=== PATIENT | male | born 1965 | race Two or more races ===

== ENCOUNTER 2024-10-23 13:28 | Inpatient (IN) | payer OTHER ==
[~2024-10-23] VITALS: Ht 182.9 cm; Wt 89.6 kg
--- NOTE | 2024-10-23 13:55 | ED.PDOC ---
History of Present Illness HPI Comments 59-year-old male with a history of being deaf was brought in by emergency services with a chief complaint of a diffuse headache. EMS states the patient was found without AC any very hot and humid house. Patient has started to be nonverbal and was brought in from a board and care facility. EMS states the pa tient was slightly tachycardic with a blood pressure 121/71. No other associated symptoms, modifiers at this time. Chief Complaint: Headache Time Seen by MD: 13:52 Reviewed Notes: Nurses Notes, Floor Covering Printer Notes, Medications, Allergies Allergies: Coded Allergies: UNOBTAINABLE (Unverified , 10/23/24) Information Source: Patient, Emergency Med Personnel Mode of Arrival: EMS Severity: Moderate Timing: Hours Duration: Since onset, Hours Prehospital treatment: None Past Medical History Past Medical History (Other): Deaf Surgical History: Denies all surgeries Family History Family History: Reviewed,noncontributory to illness Social History Smoker: Non-Smoker Alcohol: Denies ETOH Use Drugs: Denies Drug Use Lives In: Home Constitutional: denies: chills, diaphoresis, fatigue, fever, malaise, sweats, weakness, others EENTM: denies: blurred vision, double vision, ear bleeding, ear discharge, ear drainage, ear pain, ear ringing, eye pain, eye redness, hearing loss, mouth pain, mouth swelling, nasal discharge, nose bleeding, nose congestion, nose pain, photophobia, tearing, throat pain, throat swelling, voice changes, others Respiratory: denies: cough, hemoptysis, orthopnea, SOB at rest, shortness of breath, SOB with excertion, stridor, wheezing, others Cardiovascular: denies: chest pain, dizzy spells, diaphoresis, Dyspnea on exertion, edema, irregular heart beat, left arm pain, lightheadedness, palpitat ions, PND, syncope, others Gastrointestinal: denies: abdomen distended, abdominal pain, blood streaked bow els, constipated, diarrhea, dysphagia, difficulty swallowing, hematemesis, melena, nausea, poor appetite, poor fluid intake, rectal bleeding, rectal pain, vomiting, others Genitourinary: denies: burning, dysuria, flank pain, frequency, hematuria, incontinence, penile discharge, penile sore, pain, testicle pain, testicle swelling, urgency, others Neurological: reports: headache; denies: dizziness, fainting, left sided numbness, left sided weakness, numbness, paresthesia, pre-existing deficit, right sided numbness, right sided weakness, seizure, speech problems, tingling, tremors, weakness, others Musculoskeletal: denies: back pain, gout, joint pain, joint swelling, muscle p ain, muscle stiffness, neck pain, others Integumetry: denies: bruises, change in color, change in hair/nails, dryness, laceration, lesions, lumps, rash, wounds, others Allergic/Immunocompromised: denies: Difficulty Healing, Frequent Infections, Hives, Itching, others Hematologic/Lymphatic: denies: anemia, blood clots, easy bleeding, easy bruising, swollen glands, others Endocrine: denies: excessive hunger, excessive sweating, excessive thirst, excessive urination, flushing, intolerance to cold, intolerance to heat, unexplained weight gain, unexplained weight loss, others Psychiatric: denies: anxiety, bipolar disorder, depression, hopeless, panic disorder, schizophrenia, sleepless, suicidal, others All Other Systems: Reviewed and Negative Physical Exam General Appearance: Moderate Distress, Normal HEENT: Normal ENT Inspection, Pharynx Normal, TMs Normal Neck: Full Range of Motion, Non-Tender, Normal, Normal Inspection Respiratory: Chest Non-Tender, Lungs Clear, No Accessory Muscle Use, No Respiratory Distress, Normal Breath Sounds Cardiovascular: No Edema, No JVD, No Murmur, No Gallop, Normal Peripheral Pulses, Regular Rate/Rhythm Breast Exam: Deferred Gastrointestinal: No Organomegaly, Non Tender, No Pulsatile Mass, Normal Bowel Sounds, Soft Genitalia: Deferred Pelvic: Deferred Rectal: Deferred Extremities: No calf tenderness, Normal capillary refill, Normal inspection, Normal range of motion, Non-tender, No pedal edema Musculoskeletal : Apperance: Normal Neurologic: Alert, roving hand II-XII nml as Tested, No Motor Deficits, Normal Affect, Normal Mood, No Sensory Deficits Cerebellar Function: Normal Reflexes: Normal Skin: Dry, Normal Color, Warm Peripheral Pulses: 3+ Radial (R), 3+ Radial (L) Lymphatic: No Adenopathy Was a procedure done? Was a procedure done?: No Differential Dx Considerations may include: Heat stroke, dehydration, electrolyte imbalance X-Ray, Labs, Meds, VS Vital Signs Date Time Temp Pulse Resp B/P (MAP) Pulse Ox O2 Delivery O2 Flow Rate FiO2 10/23/24 13:40 98.4 98 18 121/81 97 98.4 Patient alert. Vitals stable. He is deaf. Answering questions. Saturation pristine on room air. No distress. Establish intravenous access. Was given fluids. No acute distress. Heat exhaustion. No leg swelling. No chest pain. No acute process. Explained to the patient. Was told to follow up with his primary care physician. Was told to come back if there is any problem. Time of 1ST Reevaluation: 14:22 Reevaluation 1ST: Improved Patient Education/Counseling: Diagnosis, Treatment, Need For Follow Up Family Education/Counseling: No Family Present SEPSIS Sepsis Screen Date sepsis recognized/suspect: Oct 23, 2024 Time Sepsis recognized/suspect: 1346 Recent Procedure: No On Antibiotic Therapy: No Respiratory Rate >20: No Heart Rate >90: Yes Temp<36 C (96.8 F) or >38.3 C: No SBP <90 or MAP <65 mmHG: No New Acute Mental Status Change: No Is the patient on CPAP, BIPAP,: No Vital Signs Date Time Temp Pulse Resp B/P (MAP) Pulse Ox O2 Delivery O2 Flow Rate FiO2 10/23/24 13:40 98.4 98 18 121/81 97 98.4 Departure 1 Departure Time of Disposition: 15:50 Impression: Primary Impression: Heat exhaustion Qualified Codes: T67.5XXA - Heat exhaustion, unspecified, initial encounter Disposition: 01 HOME / SELF CARE / HOMELESS Condition: Good Discharged With: Self Critical Care Note Critical Care Time?: No Stability Stability form required: No Heart Score Heart Score: Heart Score Response (Comments) Value History N/A 0 EKG N/A 0 Age N/A 0 Risk Factors N/A 0 Troponin N/A 0 Total 0 I personally scribed for GEMMA WOODS MD ([email or web address]) on 10/23/24 at 13:55. Electronically submitted by Umair Narayanan ([email or web address]). GEMMA WOODS MD Oct 23, 2024 13:55
[2024-10-23] MEDS ORDERED: NITROGLYCERIN 0.4 MG SL TAB SL PRN (22:45)
[2024-10-23] MEDS ORDERED: MORPHINE SULFATE INJ 2 MG/ml SYRG IV PRN (22:45)
[2024-10-23 23:42] LABS: Hematocrit 43.9 % (41.0-53.0); Hemoglobin 15.3 g/dL (13.5-17.5); Mean Corpuscular Hemoglobin 31.5 pg (28.0-32.0); Mean Corpuscular Volume 90.7 fL (80.0-100.0); Nucleated Red Blood Cells % 0.1 %
[2024-10-24] MEDS: SODIUM CHLORIDE 0.9% 1,000 ML IV SCH
[2024-10-24 00:01] LABS: Alanine Aminotransferase 16 U/L (7-40); Albumin 4.7 g/dL (3.2-4.8); Alkaline Phosphatase 82 U/L (46-116); BUN/Creatinine Ratio 10.7 (10.0-20.0); Bilirubin, Total 0.9 mg/dL (0.2-1.0); Blood Urea Nitrogen 13 mg/dL (9-23); Calcium 9.6 mg/dL (8.7-10.4); Carbon Dioxide 27 mmol/L (20-31); Glucose 99 mg/dL (74-106)
--- NOTE | 2024-10-24 00:05 | DVH ---
CHEST RADIOGRAPH Indication: Rule out pneumonia Technique: 1 view Comparison: None FINDINGS: Lines and Tubes: None Lungs: No focal consolidation. Pleura: No effusion or pneumothorax. Cardiomediastinal contours: Unremarkable. Other: No acute osseous abnormality. IMPRESSION: 1. No acute cardiopulmonary abnormality.
[2024-10-24 00:07] LABS: Total Protein 8.2 g/dL (5.7-8.2)
--- NOTE | 2024-10-24 00:09 | DVHHPRES ---
History of Present Illness Resident Creating Document: TAMI SELBY RESIDENT History of Present Illness 59-year-old male, difficulty hearing, living in board and care facility, nonverbal presents to the ER with history of headache according to the ER physician. However, the patient is unable to provide history, when offered pen and paper he could not write anything meaningful. His physical examination was normal. According to EMS the patient was found without AC, in a very hot and humid house. The patient was tachycardic on admission. No history was obtained due to patient's current condition, however all the baseline blood tests and imaging have been ordered. We will continue following up with the results. Review of Systems Neurological: Other (Headache) Allergies: Coded Allergies: UNOBTAINABLE (Unverified , 10/23/24) Medications Current Medications Medications Dose Ordered Sig/Jelly Route Start Time Stop Time Status Last Admin Dose Admin Sodium Chloride 10 ml Q8HR IV 10/24/24 06:00 Sodium Chloride 1,000 ml @ 60 mls/hr [id number] IV 10/23/24 22:45 Nitroglycerin 0.4 mg Q5MINP PRN SL 10/23/24 22:45 Morphine Sulfate 2 mg Q30M PRN IV 10/23/24 22:45 Exam Vital Signs Vital Signs Date Time Temp Pulse Resp B/P (MAP) Pulse Ox O2 Delivery O2 Flow Rate FiO2 10/23/24 20:31 98.4 93 18 146/88 (107) 96 98.4 Labs/Xrays Labs Test 10/23/24 23:35 Range/Units White Blood Count 10.7 4.4-10.8 10^3/uL Red Blood Count 4.84 4.5-5.90 10^6/uL Hemoglobin 15.3 13.5-17.5 g/dL Hematocrit 43.9 41.0-53.0 % Mean Corpuscular Volume 90.7 80.0-100.0 fL Mean Corpuscular Hemoglobin 31.5 28.0-32.0 pg Mean Corpuscular Hemoglobin Concent 34.8 32.0-36.0 g/dL Red Cell Distribution Width 12.6 11.8-14.3 % Platelet Count 328 140-450 10^3/uL Mean Platelet Volume 7.0 6.9-10.8 fL Neutrophils (%) (Auto) 75.8 37.0-80.0 % Lymphocytes (%) (Auto) 14.4 10.0-50.0 % Monocytes (%) (Auto) 8.2 0.0-12.0 % Eosinophils (%) (Auto) 0.9 0.0-7.0 % Basophils (%) (Auto) 0.7 0.0-2.0 % Neutrophils # (Auto) 8.1 1.6-8.6 10 ^3/uL Lymphocytes # (Auto) 1.6 0.4-5.4 10 ^3/uL Monocytes # (Auto) 0.9 0-1.3 10 ^3/uL Eosinophils # (Auto) 0.1 0-0.8 10 ^3/uL Basophils # (Auto) 0.1 0-0.2 10 ^3/uL Nucleated Red Blood Cells 0.1 % D-Dimer, Quantitative < 0.19 0.0-0.49 mg/L FEU Carbon Dioxide Level 27 20-31 mmol/L Blood Urea Nitrogen 13 9-23 mg/dL Creatinine 1.22 0.700-1.30 mg/dL Glomerular Filtration Rate Calc 68 >90 mL/min BUN/Creatinine Ratio 10.7 10.0-20.0 Serum Glucose 99 74-106 mg/dL Lactic Acid Level 1.7 0.4-2.0 mmol/L Calcium Level 9.6 8.7-10.4 mg/dL Total Bilirubin 0.9 0.2-1.0 mg/dL Aspartate Amino Transferase (AST) 20 13-40 U/L Alanine Aminotransferase (ALT) 16 7-40 U/L Alkaline Phosphatase 82 46-116 U/L Ammonia < 10 L 11-32 umol/L Total Protein 8.2 5.7-8.2 g/dL Albumin 4.7 3.2-4.8 g/dL SEPSIS Sepsis Screen Date sepsis recognized/suspect: Oct 23, 2024 Time Sepsis recognized/suspect: 1346 Recent Procedure: No On Antibiotic Therapy: No Respiratory Rate >20: No Heart Rate >90: Yes Temp<36 C (96.8 F) or >38.3 C: No SBP <90 or MAP <65 mmHG: No New Acute Mental Status Change: No Is the patient on CPAP, BIPAP,: No Physician Orders Allergies (10/23/24 22:44) Code Status (10/23/24 22:44) Sodium Chloride Lock (Saline Lock Ns) (10/24/24 06:00) Sodium Chloride 0.9% (10/23/24 22:45) Oxygen Per Hour (10/23/24 22:44) Complete Blood Count (10/24/24 04:00) Comprehensive Metabolic Panel (10/24/24 04:00) Npo (Nothing By Mouth) Diet (10/24/24 Breakfast) Nitroglycerin Sublingual (Ntrostat Subli (10/23/24 22:45) Morphine Sulfate Injection (10/23/24 22:45) Oxygen By Nasal Cannula (10/23/24 22:44) Stat Ekg For Chest Pain (10/23/24 22:44) Notify Md Of Changes From Base (10/23/24 22:44) Radiation Monitor For 24 Hours (10/23/24 22:44) Emergency Dysrhythmia Protocol (10/23/24 22:44) Rhythm Strips Once Every Shift (10/23/24 22:44) Chest Two Views Routine (10/23/24 22:44) Comprehensive Metabolic Panel (10/23/24 23:16) Urinalysis (10/23/24 23:19) Drug Screen (10/23/24 23:19) Admit (10/24/24 00:02) Vital Signs Date Time Temp Pulse Resp B/P (MAP) Pulse Ox O2 Delivery O2 Flow Rate FiO2 10/23/24 20:31 98.4 93 18 146/88 (107) 96 98.4 Laboratory Tests Test 10/23/24 23:35 Lactic Acid Level 1.7 mmol/L (0.4-2.0) White Blood Count 10.7 10^3/uL (4.4-10.8) Assessment/Plan Assessment/Plan Headache due to stroke/migraines/tension headaches Confusion due to metabolic encephalopathy Pain management done CT scan of the head ordered, results pending Electrolytes and glucose within normal limits Pulmonary: Chest x-ray: Normal No leukocytosis Nonverbal, living in board and care facility Consider social service evaluation GI prophylaxis: Not indicated DVT prophylaxis: Indicated Diet: Regular Goals of care discussed with the patient for more than 27 minutes: Full code s tatus Case discussed with Dr. Alexis , patient and RN Plan discussed with: Other My Orders Orders - TAMI SELBY RESIDENT Procedure Category Date Status Time Allergies ALENA 10/23/24 In Process 22:44 Code Status CODE 10/23/24 Transmitted 22:44 Sodium Chloride Lock PHA 10/24/24 In Process (Saline Lock Ns) 06:00 Sodium Chloride 0.9% PHA 10/23/24 In Process 22:45 Oxygen Per Hour RT 10/23/24 Transmitted 22:44 Complete Blood Count LAB 10/24/24 Logged 04:00 Comprehensive LAB 10/24/24 Logged Metabolic Panel 04:00 Npo (Nothing By DIET 10/24/24 Transmitted Mouth) Diet Breakfast Nitroglycerin PHA 10/23/24 In Process Sublingual (Ntrostat 22:45 Morphine Sulfate PHA 10/23/24 In Process Injection 22:45 Oxygen By Nasal RT 10/23/24 Transmitted Cannula 22:44 Stat Ekg For Chest ALENA 10/23/24 In Process Pain 22:44 Notify Md Of Changes [facility] 10/23/24 In Process From Base 22:44 Radiation Monitor For [facility] 10/23/24 In Process 24 Hours 22:44 Emergency Dysrhythmia ALENA 10/23/24 In Process Protocol 22:44 Rhythm Strips Once [facility] 10/23/24 In Process Every Shift 22:44 Chest Two Views XY 10/23/24 Resulted Routine 22:44 Admit ADMIT 10/24/24 Transmitted 00:02 Date of Service: Oct 24, 2024 Billing Provider: RUBEN ALEXIS MD Common Visit Codes: [id number] INP/OBS CARE (HIGH) TAMI SELBY RESIDENT Oct 24, 2024 00:09 RUBEN ALEXIS MD Oct 24, 2024 13:55
[2024-10-24 00:11] LABS: Anion Gap 9 (5-15); Chloride 99 mmol/L (98-107); Potassium 3.6 mmol/L (3.5-5.1)
[2024-10-24 00:12] LABS: Sodium 135 mmol/L (136-145)
[2024-10-24 00:37] VITALS: PULSE 79; RESP 20; O2SAT 97
[2024-10-24] MEDS: SODIUM CHLORIDE 0.9% 1,000 ML IV ONE (00:49)
[2024-10-24 04:45] LABS: Hematocrit 40.1 % (41.0-53.0); Hemoglobin 14.2 g/dL (13.5-17.5); Mean Corpuscular Hemoglobin 31.7 pg (28.0-32.0); Mean Corpuscular Volume 89.6 fL (80.0-100.0); Nucleated Red Blood Cells % 0.1 %
[2024-10-24 04:59] LABS: Alanine Aminotransferase 16 U/L (7-40); Albumin 4.3 g/dL (3.2-4.8); Alkaline Phosphatase 71 U/L (46-116); Anion Gap 9 (5-15); BUN/Creatinine Ratio 11.5 (10.0-20.0); Bilirubin, Total 0.8 mg/dL (0.2-1.0); Blood Urea Nitrogen 13 mg/dL (9-23); Calcium 9.4 mg/dL (8.7-10.4); Carbon Dioxide 27 mmol/L (20-31); Chloride 102 mmol/L (98-107); Glucose 96 mg/dL (74-106); Potassium 3.8 mmol/L (3.5-5.1); Sodium 138 mmol/L (136-145); Total Protein 7.0 g/dL (5.7-8.2)
[2024-10-24] MEDS: SODIUM CHLOR 0.9% PF (SALINE LOCK) 10ML VIAL/SYR IV SCH (05:27)
--- NOTE | 2024-10-24 07:00 | DVH ---
EXAM: CT HEAD WITHOUT CONTRAST INDICATION: Severe headaches TECHNIQUE: CT of the head without intravenous contrast. Radiation Dose : 1. Head: CT Dose: CTDI volume is 62 mGy. Dose-length product is 1225.8 mGy*cm The dose indicators for CT are the volume Computed Tomography (CT) Dose Index (CTDIvol) and the Dose Length Product (DLP), and are measured in units of mGy and mGy-cm, respectively. These indicators are not patient dose, but values generated from the CT scanner acquisition factors. The report includes radiation exposure data for exposures received during this examination. COMPARISON: None FINDINGS: There is no evidence of acute intracranial hemorrhage, extra-axial collection, mass effect, midline s hift, herniation or hydrocephalus. The ventricles, sulci and cisterns are age appropriate. The hoyt-white differentiation is intact. Patchy periventricular and subcortical white matter hypoattenuation is nonspecific but may be related to small vessel ischemic disease. Mild mucosal opacification of the paranasal sinuses. Mild opacification of the left mastoid air cells . The surrounding soft tissues and osseous structures are unremarkable. IMPRESSION: No acute intracranial abnormality. Mild mucosal opacification of the paranasal sinuses. Mild opacification of the left mastoid air cells . Radiation optimization: All CT scans at this facility use at least one of these dose optimization neo hniques: automated exposure control mA and/or kV adjustment per patient size (includes targeted exam s where dose is matched to clinical indication) or iterative reconstruction.
[2024-10-24 08:00] VITALS: PULSE 72; RESP 17; O2SAT 93
[2024-10-24 08:32] LABS: Urine Protein, UAD Negative (Negative)
[2024-10-24 08:36] LABS: Hematocrit 39.6 % (41.0-53.0); Hemoglobin 13.6 g/dL (13.5-17.5); Mean Corpuscular Hemoglobin 31.2 pg (28.0-32.0); Mean Corpuscular Volume 90.6 fL (80.0-100.0); Nucleated Red Blood Cells % 0.1 %
[2024-10-24 08:49] LABS: Amphetamine Screen, Urine Neg (NEGATIVE); Barbiturate Scree,Urine Neg (NEGATIVE); Benzodiazephine Screen, Urine Neg (NEGATIVE); Cannabinoid Screen, Urine Neg (NEGATIVE); Cocaine Screen, Urine Neg (NEGATIVE); Opiate Scree,Urine Neg (NEGATIVE); Phencyclidine Screen, Urine Neg (NEGATIVE)
--- NOTE | 2024-10-24 18:36 | DVHPN2 ---
Subjective Cross covering for [facility] today. Patient is seen and evaluated along with the nurse at bedside. Comfortable. No complaints. Changes from previous H/P or p: No Changes Objective Vitals Vital Signs Date Time Temp Pulse Resp B/P (MAP) Pulse Ox O2 Delivery O2 Flow Rate FiO2 10/24/24 16:00 98.6 75 12 124/77 (93) 95 98.6 10/24/24 08:00 Room Air* 0 21 Exam Comfortable in bed without distress. HEENT neck supple no JVD pupils equal round react to light. Heart regular rate rhythm S1-S2. Lungs fair air movement without rales wheezes. Abdomen soft nontender positive bowel sounds. Extremities no edema positive pulses. Neurologic no focal deficits. Medications Current Medications Medications Dose Ordered Sig/Jelly Route Start Time Stop Time Status Last Admin Dose Admin Sodium Chloride 10 ml Q8HR IV 10/24/24 06:00 10/24/24 13:48 10 ML Sodium Chloride 1,000 ml @ 60 mls/hr [id number] IV 10/23/24 22:45 10/24/24 13:48 60 MLS/HR Nitroglycerin 0.4 mg Q5MINP PRN SL 10/23/24 22:45 Morphine Sulfate 2 mg Q30M PRN IV 10/23/24 22:45 Laboratory Results Laboratory Tests 10/24/24 04:15 10/24/24 08:00 Chemistry Test 10/23/24 23:35 10/24/24 04:15 Albumin 4.7 g/dL (3.2-4.8) 4.3 g/dL (3.2-4.8) Calcium Level 9.6 mg/dL (8.7-10.4) 9.4 mg/dL (8.7-10.4) Total Protein 8.2 g/dL (5.7-8.2) 7.0 g/dL (5.7-8.2) Coagulation Test 10/23/24 23:35 D-Dimer, Quantitative < 0.19 mg/L FEU (0.0-0.49) LFT Test 10/23/24 23:35 10/24/24 04:15 Alanine Aminotransferase (ALT) 16 U/L (7-40) 16 U/L (7-40) Alkaline Phosphatase 82 U/L (46-116) 71 U/L (46-116) Aspartate Amino Transferase (AST) 20 U/L (13-40) 19 U/L (13-40) Total Bilirubin 0.9 mg/dL (0.2-1.0) 0.8 mg/dL (0.2-1.0) Urinalysis Test 10/24/24 08:20 Urine Color Yellow (Yellow) Urine Clarity Clear (Clear) Urine pH 6.5 (5.0-9.0) Urine Specific [place] 1.004 (1.001-1.035) Urine Protein Negative (Negative) Urine Ketones Negative (Negative) Urine Blood Negative /uL (Negative) Urine Nitrite Negative (Negative) Urine Bilirubin Negative (Negative) Urine Urobilinogen Normal mg/dL (Negative) Urine Leukocyte Esterase Negative /uL (Negative) Urine RBC <1 /hpf (0 - 3) Urine Microscopic WBC < 1 /HPF (0-3) Urine Squamous Epithelial Cells None seen /hpf (<5) Urine Bacteria None seen /hpf (None Seen) Urine Glucose Normal mg/dL (Normal) Assessment/Plan Assessment/Plan Headache due to stroke/migraines/tension headaches Confusion due to metabolic encephalopathy Alert and awake minimally verbal. Does not follow commands. Appears patient either probably has either psychiatric illness or developmental delay. Apparently came from a boarding care but there is no medication list started information available at this time. Patient is some verbal response but still confused. Unclear if patient has any developmental delay. Apparently patient came from a boarding care. Patient is able to take his medications by mouth. Continue present management for now. Further clinical management per clinical course. Discussed with the nurse at bedside Plan discussed with: Other My Orders Orders - SHANE COPPOLA MD Procedure Category Date Status Time Regular Diet DIET 10/24/24 Transmitted Dinner Date of Service: Oct 24, 2024 Billing Provider: SHANE COPPOLA MD Common Visit Codes: [id number] INP/OBS CARE(LOW) SHANE COPPOLA MD Oct 24, 2024 18:36
[2024-10-24 19:33] VITALS: PULSE 74; RESP 20; O2SAT 94
--- NOTE | 2024-10-24 22:05 | DVHINCON2 ---
Date of service: Oct 24, [address] Santos Reason for Consultation ALOC History of Present Illness Mr. Saavedra is a 59 years old gentleman with a history of deafness/nonverbal, he was brought in by Emergency Service with a chief complaint of diffuse h eadache. According to ER documentation, the patient was found in the hot and humid house without AC in the board and living facility. TIA's slightly tachycardic with a blood pressure 121/71. When I approached him, the patient was covered blanket completely, touching, he opened blanket, but he did not vocalize, often we have connected to the a high school foreign language tutor, he only asked the belt conveyor drier to tell us to lower the head of the gurney, but he did not answer my question or interpreted the questions, and simply covered his head blanket. He was not cooperative with this consultation His brother, Pedro, did not answer [phone] is number of the [facility]. is a phone of a [employer] UDS, 10/24/2024: Negative Urinalysis, 10/21/2024: WBC: <1, urine leukocyte esterase: Negative CBC, 10/24/24: ok CMP, 10/24/24: ok NH3, 10/23/24: < 10 CT head, 10/24/24: No acute intracranial abnormality. Mild mucosal opacification of the paranasal sinuses. Mild opacification of the left mastoid air cells. Past Medical History Deafness/nonverbal Past Surgical History Unobtainable Family History Unobtainable Social History Unobtainable Allergies: Coded Allergies: UNOBTAINABLE (Unverified , 10/23/24) Current Medications Current Medications Medications (Trade) Dose Ordered Sig/Jelly Route PRN Reason Start Time Stop Time Status Last Admin Sodium Chloride (Saline Lock Ns) 10 ml Q8HR IV 10/24/24 06:00 10/24/24 13:48 Sodium Chloride 1,000 ml @ 60 mls/hr [id number] IV 10/23/24 22:45 10/24/24 13:48 Nitroglycerin (Ntrostat Sublingual) 0.4 mg Q5MINP PRN SL FOR CHEST PAIN 10/23/24 22:45 Morphine Sulfate 2 mg Q30M PRN IV FOR CHEST PAIN 10/23/24 22:45 Review of Systems Unobtainable Vital Signs Vital Signs Date Time Temp Pulse Resp B/P (MAP) Pulse Ox O2 Delivery O2 Flow Rate FiO2 10/24/24 20:01 74 10/24/24 19:33 98.6 20 134/82 (99) 94 98.6 10/24/24 19:33 Room Air* 0 21 Physical Exam GENERAL EXAM: General: the patient is well developed and nourished. No acute distress. HEENT: Normocephalic, neck is supple, no carotid bruits. No mass. RESPIRATORY: Normal respiratory effort with symmetrical lung expansion. Lungs clear to auscultation. CARDIOVASCULAR: Regular rate and rhythm with no murmurs. S1, S2. ABDOMEN: Soft, nontender, normal bowel sound NEUROLOGICAL: MENTAL STATUS: Subjective SPEECH, LANGUAGE, HIGHER CORTICAL FUNCTION: No vocalize CRANIAL NERVES: #2: Visual field feels for #3,4,6: Pupils are reactive. EOMs full and conjugate. #5: Facial sensation intact in all three divisions bilaterally. Mandibular strength intact. #7: Facial muscles symmetrical and strength intact. #8: Deafness #9,10: Deferred #11: Deferred, looks unremarkable. #12: Deferred SENSATION: Okay to touch MOTOR: Normal tone in the upper and lower extremity. Normal muscle bulk. No fasciculations. No abnormal movements or posturing. He moves the arms and legs REFLEXES: Deferred CEREBELLAR/COORDINATION: Deferred GAIT/STATION: deferred Labs/Diagnostic Data Labs Test 10/24/24 08:20 10/24/24 08:00 10/24/24 04:15 10/23/24 23:35 Range/Units Urine Color Yellow Yellow Urine Clarity Clear Clear Urine pH 6.5 5.0-9.0 Urine Specific [place] 1.004 1.001-1.035 Urine Protein Negative Negative Urine Ketones Negative Negative Urine Blood Negative Negative /uL Urine Nitrite Negative Negative Urine Bilirubin Negative Negative Urine Urobilinogen Normal Negative mg/dL Urine Leukocyte Esterase Negative Negative /uL Urine RBC <1 0 - 3 /hpf Urine Microscopic WBC < 1 0-3 /HPF Urine Squamous Epithelial Cells None seen <5 /hpf Urine Bacteria None seen None Seen /hpf Urine Glucose Normal Normal mg/dL Urine Opiates Screen Neg NEGATIVE Urine Fentanyl Screen Neg NEGATIVE Urine Barbiturates Screen Neg NEGATIVE Urine Phencyclidine Screen Neg NEGATIVE Urine Amphetamines Screen Neg NEGATIVE Urine Benzodiazepines Screen Neg NEGATIVE Urine Cocaine Screen Neg NEGATIVE Urine Cannabinoids Screen Neg NEGATIVE White Blood Count 7.1 # 4.4-10.8 10^3/uL Red Blood Count 4.37 L 4.5-5.90 10^6/uL Hemoglobin 13.6 13.5-17.5 g/dL Hematocrit 39.6 L 41.0-53.0 % Mean Corpuscular Volume 90.6 80.0-100.0 fL Mean Corpuscular Hemoglobin 31.2 28.0-32.0 pg Mean Corpuscular Hemoglobin Concent 34.4 32.0-36.0 g/dL Red Cell Distribution Width 12.6 11.8-14.3 % Platelet Count 261 140-450 10^3/uL Mean Platelet Volume 7.2 6.9-10.8 fL Neutrophils (%) (Auto) 69.1 37.0-80.0 % Lymphocytes (%) (Auto) 15.6 10.0-50.0 % Monocytes (%) (Auto) 11.9 0.0-12.0 % Eosinophils (%) (Auto) 2.9 0.0-7.0 % Basophils (%) (Auto) 0.5 0.0-2.0 % Neutrophils # (Auto) 4.9 1.6-8.6 10 ^3/uL Lymphocytes # (Auto) 1.1 0.4-5.4 10 ^3/uL Monocytes # (Auto) 0.8 0-1.3 10 ^3/uL Eosinophils # (Auto) 0.2 0-0.8 10 ^3/uL Basophils # (Auto) 0 0-0.2 10 ^3/uL Nucleated Red Blood Cells 0.1 % Sodium Level 138 136-145 mmol/L Potassium Level 3.8 3.5-5.1 mmol/L Chloride Level 102 98-107 mmol/L Carbon Dioxide Level 27 20-31 mmol/L Anion Gap 9 5-15 Blood Urea Nitrogen 13 9-23 mg/dL Creatinine 1.13 0.700-1.30 mg/dL Glomerular Filtration Rate Calc 74 >90 mL/min BUN/Creatinine Ratio 11.5 10.0-20.0 Serum Glucose 96 74-106 mg/dL Calcium Level 9.4 8.7-10.4 mg/dL Total Bilirubin 0.8 0.2-1.0 mg/dL Aspartate Amino Transferase (AST) 19 13-40 U/L Alanine Aminotransferase (ALT) 16 7-40 U/L Alkaline Phosphatase 71 46-116 U/L Total Protein 7.0 5.7-8.2 g/dL Albumin 4.3 3.2-4.8 g/dL D-Dimer, Quantitative < 0.19 0.0-0.49 mg/L FEU Lactic Acid Level 1.7 0.4-2.0 mmol/L Ammonia < 10 L 11-32 umol/L Assessment This is a very difficult consultation, I can not confirm he has altered mental status, he is unfriendly, not cooperative, he looked comfortable, so can not decide if he has pain ? Heat stroke Plan/Recommendation Monitoring Supportive treatment Follow up labs CPK We will follow up with the patient was seen Poor recommendation per clinical course This medical document was created using an electronic medical record system with [employer] computerized dictation system. Although this document has been carefully reviewed, there may still be some phonetic and typographical errors. These areas are purely typographical due to imperfections of the software programs, and do not reflect any compromise in the patient's medical care. Plan discussed with: Other MERRY VILLAREAL MD Oct 24, 2024 22:05
[2024-10-25 07:30] VITALS: PULSE 58; RESP 18; O2SAT 90
[2024-10-25 13:00] VITALS: BP 149/84; PULSE 95; RESP 17; RESP 18; TEMP 97.1; O2SAT 94
[2024-10-25 13:01] VITALS: PULSE 108; RESP 16
[2024-10-25 17:00] VITALS: BP 145/81; PULSE 79; RESP 17; TEMP 98.2; O2SAT 97
--- NOTE | 2024-10-25 17:31 | DVHPN2 ---
Subjective Cross covering for [facility] today. Patient is seen and evaluated along with the nurse at bedside. Comfortable. No complaints. Changes from previous H/P or p: No Changes Objective Vitals Vital Signs Date Time Temp Pulse Resp B/P (MAP) Pulse Ox O2 Delivery O2 Flow Rate FiO2 10/25/24 13:01 108 16 10/25/24 13:00 Room Air* 0 21 10/25/24 13:00 97.1 94 97.1 Intake/Output Intake and Output 10/25/24 07:00 Intake Total 600 ml Balance 600 ml Intake IV Total 600 ml Exam Comfortable in bed without distress. HEENT neck supple no JVD pupils equal round react to light. Heart regular rate rhythm S1-S2. Lungs fair air movement without rales wheezes. Abdomen soft nontender positive bowel sounds. Extremities no edema positive pulses. Neurologic no focal deficits. Medications Current Medications Medications Dose Ordered Sig/Jelly Route Start Time Stop Time Status Last Admin Dose Admin Sodium Chloride 10 ml Q8HR IV 10/24/24 06:00 10/25/24 13:58 10 ML Sodium Chloride 1,000 ml @ 60 mls/hr [id number] IV 10/23/24 22:45 10/25/24 08:37 60 MLS/HR Nitroglycerin 0.4 mg Q5MINP PRN SL 10/23/24 22:45 Morphine Sulfate 2 mg Q30M PRN IV 10/23/24 22:45 Laboratory Results Laboratory Tests 10/24/24 04:15 10/24/24 08:00 Urinalysis Test 10/24/24 08:20 Urine Color Yellow (Yellow) Urine Clarity Clear (Clear) Urine pH 6.5 (5.0-9.0) Urine Specific [place] 1.004 (1.001-1.035) Urine Protein Negative (Negative) Urine Ketones Negative (Negative) Urine Blood Negative /uL (Negative) Urine Nitrite Negative (Negative) Urine Bilirubin Negative (Negative) Urine Urobilinogen Normal mg/dL (Negative) Urine Leukocyte Esterase Negative /uL (Negative) Urine RBC <1 /hpf (0 - 3) Urine Microscopic WBC < 1 /HPF (0-3) Urine Squamous Epithelial Cells None seen /hpf (<5) Urine Bacteria None seen /hpf (None Seen) Urine Glucose Normal mg/dL (Normal) Assessment/Plan Assessment/Plan Questionable heat stroke Headache due to stroke/migraines/tension headaches Confusion due to metabolic encephalopathy Alert and awake minimally verbal. Does not follow commands. Evaluated by Neurology. Social Service consultation is obtained to gather further information regarding his medical condition and medications and boarding care where he came from as well as next of kin. Meantime his workup in the hospital remains unremarkable. Continue current supportive care and treatment. Discussed with the nurse. Plan discussed with: Other My Orders Orders - SHANE COPPOLA MD Procedure Category Date Status Time Pt Request For Service PT 10/24/24 Logged 18:33 * Political Theory Professor CONS 10/24/24 Transmitted Consult *Consult Dr. Smyth CONS 10/24/24 Transmitted Lamar 18:36 Mrsa Screen BERNY 10/25/24 Uncollected 13:23 * Political Theory Professor CONS 10/25/24 Transmitted Consult Date of Service: Oct 25, 2024 Billing Provider: SHANE COPPOLA MD Common Visit Codes: [id number] INP/OBS CARE(MOD) SHANE COPPOLA MD Oct 25, 2024 17:31
[2024-10-25 20:00] VITALS: PULSE 80; PULSE 91; RESP 18
[2024-10-25 21:00] VITALS: BP 143/97; PULSE 77; RESP 16; TEMP 97.9; O2SAT 98
[2024-10-26] VITALS (7 sets, daily range): BP systolic 116–147; BP diastolic 54–86; PULSE 60–77; RESP 16–20; TEMP 97.8–99.7; O2SAT 94–98
--- NOTE | 2024-10-26 11:22 | DVHPN2 ---
Subjective Patient is back at his baseline seen at bedside today. Reviewed: Care Plan Changes from previous H/P or p: No Changes General: Per HPI Objective Vitals Vital Signs Date Time Temp Pulse Resp B/P (MAP) Pulse Ox O2 Delivery O2 Flow Rate FiO2 10/26/24 09:12 98.4 75 20 147/68 (94) 95 98.4 10/25/24 20:00 Room Air* 0 21 Intake/Output Intake and Output 10/26/24 07:00 Intake Total 1480 ml Balance 1480 ml Intake Oral 1120 ml IV Total 360 ml # Voids 5 Exam GEN: Healthy appearing, well-developed, NAD. HEENT: NC/AT; MMM. CV: RRR, no m/r/g. LUNGS: CTAB, no w/r/c. ABD: Soft, NT/ND, NBS, no masses or organomegaly. EXT: skin Warm, well perfused. no rashes. No clubbing, cyanosis, or edema. NEURO: Ambulating with no limitations. No focal deficits. Patient is deaf since childhood Medications Current Medications Medications Dose Ordered Sig/Jelly Route Start Time Stop Time Status Last Admin Dose Admin Sodium Chloride 10 ml Q8HR IV 10/24/24 06:00 10/26/24 06:37 10 ML Sodium Chloride 1,000 ml @ 60 mls/hr [id number] IV 10/23/24 22:45 10/26/24 00:51 60 MLS/HR Nitroglycerin 0.4 mg Q5MINP PRN SL 10/23/24 22:45 Morphine Sulfate 2 mg Q30M PRN IV 10/23/24 22:45 Laboratory Results Laboratory Tests 10/24/24 04:15 10/24/24 08:00 Urinalysis Test 10/24/24 08:20 Urine Color Yellow (Yellow) Urine Clarity Clear (Clear) Urine pH 6.5 (5.0-9.0) Urine Specific [place] 1.004 (1.001-1.035) Urine Protein Negative (Negative) Urine Ketones Negative (Negative) Urine Blood Negative /uL (Negative) Urine Nitrite Negative (Negative) Urine Bilirubin Negative (Negative) Urine Urobilinogen Normal mg/dL (Negative) Urine Leukocyte Esterase Negative /uL (Negative) Urine RBC <1 /hpf (0 - 3) Urine Microscopic WBC < 1 /HPF (0-3) Urine Squamous Epithelial Cells None seen /hpf (<5) Urine Bacteria None seen /hpf (None Seen) Urine Glucose Normal mg/dL (Normal) Labs and/or images reviewed: Labs reviewed by me, Image(s) reviewed by me Assessment/Plan Assessment/Plan 10/25: Alert and awake minimally verbal. Does not follow commands. Evaluated by Neurology. Social Service consultation is obtained to gather further information regarding his medical condition and medications and boarding care where he came from as well as next of kin. Meantime his workup in the hospital remains unremarkable. Continue current supportive care and treatment. Discussed with the nurse. 10/26: CT head had possible? Left mastoiditis. Concern for possible questionable heat stroke but no body temperature is > 104 F. labs are mostly unremarkable. UDS negative, UA negative. Most reversible medical causes are ruled out, there is still chance of alcohol withdrawal, undetectable abuse substance. We will start ceftriaxone for possible mastoiditis, continue IV fluids, start thiamine, folatex1, daily multivitamin, labs today.. Patient appears to be back at his baseline, following commands communicating through writing board which she brought from his home. This concerned that place of living boarding care had no temperature control, we will place home safety eval consult with social. We will continue IV antibiotics. Patient ambulating. Diagnosis: Confusion due to metabolic encephalopathy Questionable heat stroke Headache due to stroke/migraines/tension headaches Plan: Continue Home medications Social consulted for home safety eval Prn pain control IV fluids Med surge Full code Plan discussed with: Patient Date of Service: Oct 26, 2024 Billing Provider: GREGORY RAMOS MD Common Visit Codes: [id number] INP/OBS CARE(HIGH) GREGORY RAMOS MD Oct 26, 2024 11:22
[2024-10-26] MEDS: THIAMINE 100mg/ml INJ (200mg/2ml VIAL) IV SCH (12:14)
[2024-10-26] MEDS: cefTRIAXone 1GM/50ML D5W 50 ML IV SCH (12:14)
[2024-10-26] MEDS: MULTIPLE VITAMIN TAB PO SCH (12:14)
[2024-10-26 12:53] LABS: Hematocrit 39.2 % (41.0-53.0); Hemoglobin 13.6 g/dL (13.5-17.5); Mean Corpuscular Hemoglobin 31.1 pg (28.0-32.0); Mean Corpuscular Volume 89.6 fL (80.0-100.0); Nucleated Red Blood Cells % 0.1 %
[2024-10-26 13:10] LABS: Alanine Aminotransferase 16 U/L (7-40); Albumin 3.8 g/dL (3.2-4.8); Alkaline Phosphatase 64 U/L (46-116); Anion Gap 8 (5-15); BUN/Creatinine Ratio 16.7 (10.0-20.0); Blood Urea Nitrogen 14 mg/dL (9-23); Calcium 9.0 mg/dL (8.7-10.4); Carbon Dioxide 27 mmol/L (20-31); Glucose 86 mg/dL (74-106); Potassium 4.0 mmol/L (3.5-5.1); Sodium 142 mmol/L (136-145); Total Protein 6.1 g/dL (5.7-8.2)
[2024-10-26 13:11] LABS: Bilirubin, Total 0.5 mg/dL (0.2-1.0)
[2024-10-26 13:12] LABS: Chloride 107 mmol/L (98-107)
[2024-10-26] MEDS: FOLIC ACID 1 MG, MULTIPLE VITAMIN 10 ML, MAGNESIUM SULF SDV 50% 8 MEQ, THIAMINE INJ 100... INJ ONE (18:33)
--- NOTE | 2024-10-26 21:53 | DVHPN2 ---
Progress Note - Dictate Date Seen: Oct 26, 2024 Medical Necessity Reason Pt with a Central, PICC or Fol: No Subjective Mr. Saavedra is a 59 years old gentleman with a history of deafness/nonverbal, he was brought in by Emergency Service with a chief complaint of diffuse headache. According to ER documentation, the patient was found in the hot and humid house without AC in the board and living facility. He was slightly tachycardic with a blood pressure was 121/71. I have seen and examined the patient, I have discussed with his nurse and sitter, he is easier to access today, wave his hands socially to me, he moves the arm for me, and his muscle strength feels normal in the arms Social service input appreciated UDS, 10/24/2024: Negative Urinalysis, 10/21/2024: WBC: <1, urine leukocyte esterase: Negative CBC, 10/24/24: ok CMP, 10/24/24: ok CBC, 10/24/2024: 101 NH3, 10/23/24: < 10 CT head, 10/24/24: No acute intracranial abnormality. Mild mucosal opacification of the paranasal sinuses. Mild opacification of the left mastoid air cells. vital signs Vital Sign Date Time Temp Pulse Resp B/P (MAP) Pulse Ox O2 Delivery O2 Flow Rate FiO2 10/26/24 21:00 99.7 60 18 116/54 (74) 95 99.7 10/26/24 20:00 Room Air* 0 21 Total Intake and Output 10/25/24 10/25/24 10/26/24 15:00 23:00 07:00 Intake Total 360 ml 600 ml 520 ml Balance 360 ml 600 ml 520 ml medications Current Medications Medications Dose Ordered Sig/Jelly Route Start Time Stop Time Status Last Admin Dose Admin Sodium Chloride 10 ml Q8HR IV 10/24/24 06:00 10/26/24 12:14 10 ML Sodium Chloride 1,000 ml @ 60 mls/hr [id number] IV 10/23/24 22:45 10/26/24 17:25 60 MLS/HR Nitroglycerin 0.4 mg Q5MINP PRN SL 10/23/24 22:45 Morphine Sulfate 2 mg Q30M PRN IV 10/23/24 22:45 Ceftriaxone Sodium 50 ml @ 100 mls/hr DAILY@09 IV 10/26/24 11:30 10/26/24 12:14 100 MLS/HR Thiamine HCl 100 mg DAILY IV 10/26/24 11:30 10/31/24 11:29 10/26/24 12:14 100 MG Multivitamins 1 tab DAILY PO 10/26/24 11:30 10/26/24 12:14 1 TAB objective General: the patient is well developed and nourished. No acute distress. MENTAL STATUS: Subjective SPEECH, LANGUAGE, HIGHER CORTICAL FUNCTION: No vocalize CRANIAL NERVES: Pupils are reactive. EOMs full and conjugate. Facial sensation intact in all three divisions bilaterally. Mandibular strength intact. Facial muscles symmetrical and strength intact. Deafness SENSATION: Okay to touch MOTOR: Normal tone in the upper and lower extremity. Normal muscle bulk. No fasciculations. No abnormal movements or posturing. He moves the arms and legs REFLEXES: Deferred CEREBELLAR/COORDINATION: Deferred but no ataxia noticed GAIT/STATION: deferred laboratory and microbiology Laboratory Tests 10/26/24 12:15 Test 10/26/24 12:15 Range/Units Serum Glucose 86 74-106 mg/dL Problem List This is a very difficult consultation, I can not confirm he has altered mental status, he is unfriendly, not cooperative, he looked comfortable, so can not decide if he has pain ? Heat stroke Assessment/Plan Monitoring Supportive treatment Hydration Social service on case Poor recommendation per clinical course This medical document was created using an electronic medical record system with [employer] dictation system. Although this document has been carefully reviewed, there may still be some phonetic and typographical errors. These areas are purely typographical due to imperfections of the software programs, and do not reflect any compromise in the patient's medical care. Prognosis poor Plan discussed with: Other MERRY VILLAREAL MD Oct 26, 2024 21:53
[2024-10-27 05:00] VITALS: BP 117/73; PULSE 54; RESP 18; TEMP 98.3; O2SAT 99
[2024-10-27 08:00] VITALS: PULSE 66; RESP 18; O2SAT 98
[2024-10-27 09:17] VITALS: BP 120/70; PULSE 66; RESP 18; TEMP 98.4; O2SAT 98
--- NOTE | 2024-10-27 10:48 | DVHPN2 ---
Subjective Patient is back at his baseline seen at bedside today. Reviewed: Care Plan General: Per HPI Objective Vitals Vital Signs Date Time Temp Pulse Resp B/P (MAP) Pulse Ox O2 Delivery O2 Flow Rate FiO2 10/27/24 09:17 98.4 66 18 120/70 (87) 98 98.4 10/26/24 20:00 Room Air* 0 21 Intake/Output Intake and Output 10/27/24 07:00 Intake Total 970 ml Balance 970 ml Intake Oral 920 ml IV Total 50 ml # Voids 8 # Bowel Movements 1 Exam GEN: Healthy appearing, well-developed, NAD. HEENT: NC/AT; MMM. CV: RRR, no m/r/g. LUNGS: CTAB, no w/r/c. ABD: Soft, NT/ND, NBS, no masses or organomegaly. EXT: skin Warm, well perfused. no rashes. No clubbing, cyanosis, or edema. NEURO: Ambulating with no limitations. No focal deficits. Patient is deaf since childhood Medications Current Medications Medications Dose Ordered Sig/Jelly Route Start Time Stop Time Status Last Admin Dose Admin Sodium Chloride 10 ml Q8HR IV 10/24/24 06:00 10/27/24 06:24 10 ML Sodium Chloride 1,000 ml @ 60 mls/hr [id number] IV 10/23/24 22:45 10/26/24 17:25 60 MLS/HR Nitroglycerin 0.4 mg Q5MINP PRN SL 10/23/24 22:45 Morphine Sulfate 2 mg Q30M PRN IV 10/23/24 22:45 Ceftriaxone Sodium 50 ml @ 100 mls/hr DAILY@09 IV 10/26/24 11:30 10/27/24 09:00 100 MLS/HR Thiamine HCl 100 mg DAILY IV 10/26/24 11:30 10/31/24 11:29 10/27/24 10:01 100 MG Multivitamins 1 tab DAILY PO 10/26/24 11:30 10/27/24 10:01 1 TAB Laboratory Results Laboratory Tests 10/26/24 12:15 Chemistry Test 10/26/24 12:15 Albumin 3.8 g/dL (3.2-4.8) Calcium Level 9.0 mg/dL (8.7-10.4) Total Protein 6.1 g/dL (5.7-8.2) LFT Test 10/26/24 12:15 Alanine Aminotransferase (ALT) 16 U/L (7-40) Alkaline Phosphatase 64 U/L (46-116) Aspartate Amino Transferase (AST) 22 U/L (13-40) Total Bilirubin 0.5 mg/dL (0.2-1.0) Urinalysis Test 10/24/24 08:20 Urine Color Yellow (Yellow) Urine Clarity Clear (Clear) Urine pH 6.5 (5.0-9.0) Urine Specific [place] 1.004 (1.001-1.035) Urine Protein Negative (Negative) Urine Ketones Negative (Negative) Urine Blood Negative /uL (Negative) Urine Nitrite Negative (Negative) Urine Bilirubin Negative (Negative) Urine Urobilinogen Normal mg/dL (Negative) Urine Leukocyte Esterase Negative /uL (Negative) Urine RBC <1 /hpf (0 - 3) Urine Microscopic WBC < 1 /HPF (0-3) Urine Squamous Epithelial Cells None seen /hpf (<5) Urine Bacteria None seen /hpf (None Seen) Urine Glucose Normal mg/dL (Normal) Microbiology Microbiology Date/Time Source Procedure Growth Status 10/25/24 00:00 Nose MRSA Screen - Final Complete Assessment/Plan Assessment/Plan 10/25: Alert and awake minimally verbal. Does not follow commands. Evaluated by Neurology. Social Service consultation is obtained to gather further information regarding his medical condition and medications and boarding care where he came from as well as next of kin. Meantime his workup in the hospital remains unremarkable. Continue current supportive care and treatment. Discussed with the nurse. 10/26: CT head had possible? Left mastoiditis. Concern for possible questionable heat stroke but no body temperature is > 104 F. labs are mostly unremarkable. UDS negative, UA negative. Most reversible medical causes are ruled out, there is still chance of alcohol withdrawal, undetectable abuse substance. We will start ceftriaxone for possible mastoiditis, continue IV fluids, start thiamine, folatex1, daily multivitamin, labs today.. Patient appears to be back at his baseline, following commands communicating through writing board which she brought from his home. This concerned that place of living boarding care had no temperature control, we will place home safety eval consult with social. We will continue IV antibiotics. Patient ambulating. 10/27: Patient doing well, back at his baseline confirmed with brother who lives in a different state. Patient's primary housing boarding care not safe environment we will likely need social workers to help place in [facility] care which can provide adequate air conditioning safe [facility]. Diagnosis: Confusion due to metabolic encephalopathy Questionable heat stroke Headache due to stroke/migraines/tension headaches Plan: Continue Home medications Social consulted for home safety eval Prn pain control IV fluids Med surge Full code Plan discussed with: Patient My Orders Orders - GREGORY RAMOS MD Procedure Category Date Status Time Ceftriaxone 1gm/50ml PHA 10/26/24 In Process D5w (Rocephin) 11:30 Thiamine Inj PHA 10/26/24 In Process 11:30 Multiple Vitamin PHA 10/26/24 In Process Tablet (Mvi Tab) 11:30 Discontinue Tele ALENA 10/26/24 In Process 16:49 Transfer Orders XFER 10/26/24 Transmitted 16:49 * Video Game Script Writer CONS 10/27/24 Transmitted Consult 10:35 GREGORY RAMOS MD Oct 27, 2024 10:48
[2024-10-27] MEDS: ONDANSETRON HCL 4 MG/2 ML VIAL IV PRN (13:27)
[2024-10-27 17:05] VITALS: BP 120/74; PULSE 77; RESP 20; TEMP 98.2; O2SAT 96
[2024-10-27 21:00] VITALS: BP 143/83; PULSE 67; RESP 20; TEMP 97.9; O2SAT 96
--- NOTE | 2024-10-27 23:33 | DVHPN2 ---
Progress Note - Dictate Date Seen: Oct 27, 2024 Medical Necessity Reason Pt with a Central, PICC or Fol: No Subjective Mr. Saavedra is a 59 years old gentleman with a history of deafness/nonverbal, he was brought in by Emergency Service with a chief complaint of diffuse headache. According to ER documentation, the patient was found in the hot and humid house without AC in the board and living facility. He was slightly tachycardic with a blood pressure was 121/71. I have seen and examined the patient, I have talked to his nurse and sitter, he is doing fine, no new , he walked with no problems, Social service input from today appreciated UDS, 10/24/2024: Negative Urinalysis, 10/21/2024: WBC: <1, urine leukocyte esterase: Negative CBC, 10/24/24: ok CMP, 10/24/24: ok CBC, 10/24/2024: 101 NH3, 10/23/24: < 10 CT head, 10/24/24: No acute intracranial abnormality. Mild mucosal opacification of the paranasal sinuses. Mild opacification of the left mastoid air cells. vital signs Vital Sign Date Time Temp Pulse Resp B/P (MAP) Pulse Ox O2 Delivery O2 Flow Rate FiO2 10/27/24 17:05 98.2 77 20 120/74 (89) 96 98.2 10/27/24 08:00 Room Air* 0 21 Total Intake and Output 10/26/24 10/26/24 10/27/24 15:00 23:00 07:00 Intake Total 50 ml 580 ml 340 ml Balance 50 ml 580 ml 340 ml medications Current Medications Medications Dose Ordered Sig/Jelly Route Start Time Stop Time Status Last Admin Dose Admin Sodium Chloride 10 ml Q8HR IV 10/24/24 06:00 10/27/24 14:00 10 ML Sodium Chloride 1,000 ml @ 60 mls/hr [id number] IV 10/23/24 22:45 10/26/24 17:25 60 MLS/HR Nitroglycerin 0.4 mg Q5MINP PRN SL 10/23/24 22:45 Morphine Sulfate 2 mg Q30M PRN IV 10/23/24 22:45 Ceftriaxone Sodium 50 ml @ 100 mls/hr DAILY@09 IV 10/26/24 11:30 10/27/24 09:00 100 MLS/HR Thiamine HCl 100 mg DAILY IV 10/26/24 11:30 10/31/24 11:29 10/27/24 10:01 100 MG Multivitamins 1 tab DAILY PO 10/26/24 11:30 10/27/24 10:01 1 TAB Ondansetron HCl 4 mg Q4HPRN PRN IV 10/27/24 11:45 10/27/24 13:27 4 MG objective General: the patient is well developed and nourished. No acute distress. MENTAL STATUS: Subjective SPEECH, LANGUAGE, HIGHER CORTICAL FUNCTION: No vocalize CRANIAL NERVES: Pupils are reactive. EOMs full and conjugate. Facial sensation intact in all three divisions bilaterally. Mandibular strength intact. Facial muscles symmetrical and strength intact. Deafness SENSATION: Okay to touch MOTOR: Normal tone in the upper and lower extremity. Normal muscle bulk. No fasciculations. No abnormal movements or posturing. He moves the arms and legs REFLEXES: Deferred CEREBELLAR/COORDINATION: Deferred but no ataxia noticed GAIT/STATION: deferred laboratory and microbiology Laboratory Tests 10/26/24 12:15 Test 10/26/24 12:15 Range/Units Serum Glucose 86 74-106 mg/dL Problem List Altered mental status Metabolic encephalopathy secondary to his stroke ? Heat stroke Assessment/Plan Monitoring Supportive treatment Hydration Social service on case More recommendation per clinical course This medical document was created using an electronic medical record system with y prime dictation system. Although this document has been carefully reviewed, there may still be some phonetic and typographical errors. These areas are purely typographical due to imperfections of the software programs, and do not reflect any compromise in the patient's medical care. Prognosis poor Plan discussed with: Other MERRY VILLAREAL MD Oct 27, 2024 23:33
[2024-10-28] VITALS (8 sets, daily range): BP systolic 105–153; BP diastolic 62–93; PULSE 55–69; RESP 17–19; TEMP 97.5–98.6; O2SAT 96–99
--- NOTE | 2024-10-28 11:44 | DVHDS2 ---
Discharge Summary Date of Admission Oct 24, 2024 at 00:02 Date of Discharge: Oct 28, 2024 Labs/Diagnostic Data: Laboratory Results Test 10/26/24 12:15 10/24/24 08:20 10/24/24 04:15 10/23/24 23:35 White Blood Count 6.1 10^3/uL (4.4-10.8) Red Blood Count 4.37 10^6/uL (4.5-5.90) Hemoglobin 13.6 g/dL (13.5-17.5) Hematocrit 39.2 % (41.0-53.0) Mean Corpuscular Volume 89.6 fL (80.0-100.0) Mean Corpuscular Hemoglobin 31.1 pg (28.0-32.0) Mean Corpuscular Hemoglobin Concent 34.7 g/dL (32.0-36.0) Red Cell Distribution Width 12.4 % (11.8-14.3) Platelet Count 291 10^3/uL (140-450) Mean Platelet Volume 7.2 fL (6.9-10.8) Neutrophils (%) (Auto) 67.1 % (37.0-80.0) Lymphocytes (%) (Auto) 20.6 % (10.0-50.0) Monocytes (%) (Auto) 9.2 % (0.0-12.0) Eosinophils (%) (Auto) 2.5 % (0.0-7.0) Basophils (%) (Auto) 0.6 % (0.0-2.0) Neutrophils # (Auto) 4.1 10 ^3/uL (1.6-8.6) Lymphocytes # (Auto) 1.3 10 ^3/uL (0.4-5.4) Monocytes # (Auto) 0.6 10 ^3/uL (0-1.3) Eosinophils # (Auto) 0.2 10 ^3/uL (0-0.8) Basophils # (Auto) 0 10 ^3/uL (0-0.2) Nucleated Red Blood Cells 0.1 % Sodium Level 142 mmol/L (136-145) Potassium Level 4.0 mmol/L (3.5-5.1) Chloride Level 107 mmol/L (98-107) Carbon Dioxide Level 27 mmol/L (20-31) Anion Gap 8 (5-15) Blood Urea Nitrogen 14 mg/dL (9-23) Creatinine 0.84 mg/dL (0.700-1.30) Glomerular Filtration Rate Calc 100 mL/min (>90) BUN/Creatinine Ratio 16.7 (10.0-20.0) Serum Glucose 86 mg/dL (74-106) Calcium Level 9.0 mg/dL (8.7-10.4) Total Bilirubin 0.5 mg/dL (0.2-1.0) Aspartate Amino Transferase (AST) 22 U/L (13-40) Alanine Aminotransferase (ALT) 16 U/L (7-40) Alkaline Phosphatase 64 U/L (46-116) Total Protein 6.1 g/dL (5.7-8.2) Albumin 3.8 g/dL (3.2-4.8) Urine Color Yellow (Yellow) Urine Clarity Clear (Clear) Urine pH 6.5 (5.0-9.0) Urine Specific [place] 1.004 (1.001-1.035) Urine Protein Negative (Negative) Urine Ketones Negative (Negative) Urine Blood Negative /uL (Negative) Urine Nitrite Negative (Negative) Urine Bilirubin Negative (Negative) Urine Urobilinogen Normal mg/dL (Negative) Urine Leukocyte Esterase Negative /uL (Negative) Urine RBC <1 /hpf (0 - 3) Urine Microscopic WBC < 1 /HPF (0-3) Urine Squamous Epithelial Cells None seen /hpf (<5) Urine Bacteria None seen /hpf (None Seen) Urine Glucose Normal mg/dL (Normal) Urine Opiates Screen Neg (NEGATIVE) Urine Fentanyl Screen Neg (NEGATIVE) Urine Barbiturates Screen Neg (NEGATIVE) Urine Phencyclidine Screen Neg (NEGATIVE) Urine Amphetamines Screen Neg (NEGATIVE) Urine Benzodiazepines Screen Neg (NEGATIVE) Urine Cocaine Screen Neg (NEGATIVE) Urine Cannabinoids Screen Neg (NEGATIVE) Creatine Kinase 101 U/L (46-171) D-Dimer, Quantitative < 0.19 mg/L FEU (0.0-0.49) Lactic Acid Level 1.7 mmol/L (0.4-2.0) Ammonia < 10 umol/L (11-32) Other Laboratory Tests 10/26/24 12:15 Brief Hx & Hospital Course: HPI: 59-year-old male, difficulty hearing, living in board and care facility, nonverbal presents to the ER with history of headache according to the ER physician. However, the patient is unable to provide history, when offered pen and paper he could not write anything meaningful. His physical examination was normal. According to EMS the patient was found without AC, in a very hot and humid house. The patient was tachycardic on admission. 10/25: Alert and awake, minimally verbal. Does not follow commands. Evaluated by Neurology. Social Service consultation is obtained to gather further information regarding his medical condition and medications and boarding care where he came from as well as next of kin. Meantime his workup in the hospital remains unremarkable. Continue current supportive care and treatment. Discussed with the nurse. 10/26: CT head had possible? Left mastoiditis. Concern for possible questionable heat stroke but no body temperature is > 104 F. labs are mostly unremarkable. UDS negative, UA negative. Most reversible medical causes are ruled out, there is still chance of alcohol withdrawal, undetectable abuse substance. We will start ceftriaxone for possible mastoiditis, continue IV fluids, start thiamine, folatex1, daily multivitamin, labs today.. Patient appears to be back at his baseline, following commands communicating through writing board which she brought from his home. This concerned that place of living boarding care had no temperature control, we will place home safety eval consult with social. We will continue IV antibiotics. Patient ambulating. 10/27: Patient doing well, back at his baseline confirmed with brother who lives in a different state. Patient's primary housing boarding care not safe environment we will likely need social workers to help place in new [facility] care which can provide adequate air conditioning safe [facility]. Diagnosis: Acute toxic metabolic encephalopathy, due to below Acute heat exhaustion, due to improper usp conditions tension headaches, resolved Deafness, childhood condition, cause unknown [id number] developmental delay, unknown diagnosis, autism spectrum disorder possible discharge plan - social consulted to find safe board and care meeting appropriate care standard - followup with PCP Condition at Discharge: Stable Final Diagnosis/Problems List Acute toxic metabolic encephalopathy, due to below Acute heat exhaustion, due to improper usp conditions tension headaches, resolved Deafness, childhood condition, cause unknown [id number] developmental delay, unknown diagnosis, autism spectrum disorder possible Discharge Disposition: Assisted Living Facility Discharge Instruct/Medications Diet: Regular Activity: No Restrictions, As Tolerated Follow Up/Referral: See below Medications: See below Discharge Statement: "Patient was advised to return to the ER or call 911 if any headaches, dizziness, shortness of breath, chest pain, abdominal pain, bleeding, fevers, or worsening of medical condition. Patient was counseled about treatment plan, medications, possible side effects, patientverbalized understanding. All questions were answered to the best of my ability. This discharge took greater then 30 minutes in planning, reviewing documentation, counseling the patient, and discussing with other team members." Date of Service: Oct 28, 2024 Billing Provider: GREGORY RAMOS MD Common Visit Codes: [id number] DISCH DAY >30min GREGORY RAMOS MD Oct 28, 2024 11:44
[2024-10-29] VITALS (7 sets, daily range): BP systolic 131–157; BP diastolic 63–95; PULSE 60–76; RESP 18–20; TEMP 97.1–97.7; O2SAT 92–96
--- NOTE | 2024-10-29 10:26 | DVHPN2 ---
Progress Note - Dictate Date Seen: Oct 29, 2024 Medical Necessity Reason Pt with a Central, PICC or Fol: No Subjective Mr. Saavedra is a 59 years old gentleman with a history of deafness/nonverbal, he was brought in by Emergency Service with a chief complaint of diffuse headache. According to ER documentation, the patient was found in the hot and humid house without AC in the board and living facility. He was slightly tachycardic with a blood pressure was 121/71. I have seen and examined the patient, I have talked to his nurse and sitter, he is doing fine, no new complaints, he uses sign to communicated with us, he walked with no problems, Sitter: he read and wrote UDS, 10/24/2024: Negative Urinalysis, 10/21/2024: WBC: <1, urine leukocyte esterase: Negative CBC, 10/24/24: ok CMP, 10/24/24: ok CBC, 10/24/2024: 101 NH3, 10/23/24: < 10 CT head, 10/24/24: No acute intracranial abnormality. Mild mucosal opacification of the paranasal sinuses. Mild opacification of the left mastoid air cells. vital signs Vital Sign Date Time Temp Pulse Resp B/P (MAP) Pulse Ox O2 Delivery O2 Flow Rate FiO2 10/29/24 05:00 97.5 63 20 146/63 (90) 93 97.5 10/28/24 20:00 Room Air* 0 21 Total Intake and Output 10/28/24 10/28/24 10/29/24 15:00 23:00 07:00 Intake Total 50 ml 655 ml 500 ml Balance 50 ml 655 ml 500 ml medications Current Medications Medications Dose Ordered Sig/Jelly Route Start Time Stop Time Status Last Admin Dose Admin Sodium Chloride 10 ml Q8HR IV 10/24/24 06:00 10/29/24 06:00 10 ML Sodium Chloride 1,000 ml @ 60 mls/hr [id number] IV 10/23/24 22:45 10/29/24 10:03 60 MLS/HR Nitroglycerin 0.4 mg Q5MINP PRN SL 10/23/24 22:45 Morphine Sulfate 2 mg Q30M PRN IV 10/23/24 22:45 Ceftriaxone Sodium 50 ml @ 100 mls/hr DAILY@09 IV 10/26/24 11:30 10/29/24 10:02 100 MLS/HR Thiamine HCl 100 mg DAILY IV 10/26/24 11:30 10/31/24 11:29 10/29/24 10:02 100 MG Multivitamins 1 tab DAILY PO 10/26/24 11:30 10/29/24 10:02 1 TAB Ondansetron HCl 4 mg Q4HPRN PRN IV 10/27/24 11:45 10/28/24 11:17 4 MG objective General: the patient is well developed and nourished. No acute distress. MENTAL STATUS: Subjective SPEECH, LANGUAGE, HIGHER CORTICAL FUNCTION: No vocalize CRANIAL NERVES: Pupils are reactive. EOMs full and conjugate. Facial sensation intact in all three divisions bilaterally. Mandibular strength intact. Facial muscles symmetrical and strength intact. Deafness SENSATION: Okay to touch MOTOR: Normal tone in the upper and lower extremity. Normal muscle bulk. No fasciculations. No abnormal movements or posturing. He moves the arms and legs REFLEXES: Deferred CEREBELLAR/COORDINATION: No ataxia GAIT/STATION: Unremarkable laboratory and microbiology Laboratory Tests 10/26/24 12:15 Test 10/26/24 12:15 Range/Units Serum Glucose 86 74-106 mg/dL Problem List Altered mental status Metabolic encephalopathy secondary to his stroke ? Heat stroke Assessment/Plan Monitoring Supportive treatment Hydration Social service on case More recommendation per clinical course This medical document was created using an electronic medical record system with Passpack dictation system. Although this document has been carefully reviewed, there may still be some phonetic and typographical errors. These areas are purely typographical due to imperfections of the software programs, and do not reflect any compromise in the patient's medical care. Prognosis poor Plan discussed with: Other MERRY VILLAREAL MD Oct 29, 2024 10:26
--- NOTE | 2024-10-29 16:21 | DVHPN2 ---
Subjective Patient is back at his baseline seen at bedside today. Reviewed: Care Plan Changes from previous H/P or p: No Changes General: Per HPI Objective Vitals Vital Signs Date Time Temp Pulse Resp B/P (MAP) Pulse Ox O2 Delivery O2 Flow Rate FiO2 10/29/24 08:00 Room Air* 0 21 10/29/24 05:00 97.5 63 20 146/63 (90) 93 97.5 Intake/Output Intake and Output 10/29/24 07:00 Intake Total 1205 ml Balance 1205 ml Intake Oral 1155 ml IV Total 50 ml # Voids 10 Exam GEN: Healthy appearing, well-developed, NAD. HEENT: NC/AT; MMM. CV: RRR, no m/r/g. LUNGS: CTAB, no w/r/c. ABD: Soft, NT/ND, NBS, no masses or organomegaly. EXT: skin Warm, well perfused. no rashes. No clubbing, cyanosis, or edema. NEURO: Ambulating with no limitations. No focal deficits. Patient is deaf since childhood Medications Current Medications Medications Dose Ordered Sig/Jelly Route Start Time Stop Time Status Last Admin Dose Admin Sodium Chloride 10 ml Q8HR IV 10/24/24 06:00 10/29/24 13:59 10 ML Sodium Chloride 1,000 ml @ 60 mls/hr [id number] IV 10/23/24 22:45 10/29/24 10:03 60 MLS/HR Nitroglycerin 0.4 mg Q5MINP PRN SL 10/23/24 22:45 Morphine Sulfate 2 mg Q30M PRN IV 10/23/24 22:45 Ceftriaxone Sodium 50 ml @ 100 mls/hr DAILY@09 IV 10/26/24 11:30 10/29/24 10:02 100 MLS/HR Thiamine HCl 100 mg DAILY IV 10/26/24 11:30 10/31/24 11:29 10/29/24 10:02 100 MG Multivitamins 1 tab DAILY PO 10/26/24 11:30 10/29/24 10:02 1 TAB Ondansetron HCl 4 mg Q4HPRN PRN IV 10/27/24 11:45 10/28/24 11:17 4 MG Laboratory Results Laboratory Tests 10/26/24 12:15 Urinalysis Test 10/24/24 08:20 Urine Color Yellow (Yellow) Urine Clarity Clear (Clear) Urine pH 6.5 (5.0-9.0) Urine Specific [place] 1.004 (1.001-1.035) Urine Protein Negative (Negative) Urine Ketones Negative (Negative) Urine Blood Negative /uL (Negative) Urine Nitrite Negative (Negative) Urine Bilirubin Negative (Negative) Urine Urobilinogen Normal mg/dL (Negative) Urine Leukocyte Esterase Negative /uL (Negative) Urine RBC <1 /hpf (0 - 3) Urine Microscopic WBC < 1 /HPF (0-3) Urine Squamous Epithelial Cells None seen /hpf (<5) Urine Bacteria None seen /hpf (None Seen) Urine Glucose Normal mg/dL (Normal) Microbiology Microbiology Date/Time Source Procedure Growth Status 10/25/24 00:00 Nose MRSA Screen - Final Complete Labs and/or images reviewed: Labs reviewed by me, Image(s) reviewed by me Assessment/Plan Assessment/Plan 10/25: Alert and awake minimally verbal. Does not follow commands. Evaluated by Neurology. Social Service consultation is obtained to gather further information regarding his medical condition and medications and boarding care where he came from as well as next of kin. Meantime his workup in the hospital remains unremarkable. Continue current supportive care and treatment. Discussed with the nurse. 10/26: CT head had possible? Left mastoiditis. Concern for possible questionable heat stroke but no body temperature is > 104 F. labs are mostly unremarkable. UDS negative, UA negative. Most reversible medical causes are ruled out, there is still chance of alcohol withdrawal, undetectable abuse substance. We will start ceftriaxone for possible mastoiditis, continue IV fluids, start thiamine, folatex1, daily multivitamin, labs today.. Patient appears to be back at his baseline, following commands communicating through writing board which she brought from his home. This concerned that place of living boarding care had no temperature control, we will place home safety eval consult with social. We will continue IV antibiotics. Patient ambulating. 10/27: Patient doing well, back at his baseline confirmed with brother who lives in a different state. Patient's primary housing boarding care not safe environment we will likely need social workers to help place in [facility] care which can provide adequate air conditioning safe [facility]. 10/28: Patient is stable for discharge, social work we will place in new boarding care. 10/29: Patient remains stable for discharge remains at baseline. Diagnosis: Confusion due to metabolic encephalopathy Questionable heat stroke Headache due to stroke/migraines/tension headaches Plan: Continue Home medications Social consulted for board care placement Prn pain control po hydration Med surge Full code Plan discussed with: Patient Date of Service: Oct 29, 2024 Billing Provider: GREGORY RAMOS MD Common Visit Codes: [id number] INP/OBS CARE(MOD) GREGORY RAMOS MD Oct 29, 2024 16:21
[2024-10-30 01:00] VITALS: BP 123/66; PULSE 78; RESP 18; TEMP 98.2; O2SAT 94
[2024-10-30 05:00] VITALS: BP 150/72; PULSE 62; RESP 18; TEMP 98.5; O2SAT 96
[2024-10-30 09:07] VITALS: BP 143/85; PULSE 62; RESP 16; TEMP 97.8; O2SAT 93
[2024-10-30 13:00] VITALS: BP 147/78; PULSE 55; RESP 18; TEMP 98.1; O2SAT 97
[2024-10-30 16:35] VITALS: BP 156/87; PULSE 61; RESP 17; TEMP 98.2; O2SAT 96
[2024-10-30 17:26] VITALS: TEMP 36.8
--- NOTE | 2024-10-30 17:36 | DVHPN2 ---
Subjective Patient is back at his baseline seen at bedside today. Reviewed: Care Plan Changes from previous H/P or p: No Changes General: Per HPI Objective Vitals Vital Signs Date Time Temp Pulse Resp B/P (MAP) Pulse Ox O2 Delivery O2 Flow Rate FiO2 10/30/24 17:26 36.8 10/30/24 16:35 61 17 156/87 (110) 96 10/30/24 08:00 Room Air* 0 21 Intake/Output Intake and Output 10/30/24 07:00 Intake Total 810 ml Balance 810 ml Intake Oral 760 ml IV Total 50 ml # Voids 8 Exam GEN: Healthy appearing, well-developed, NAD. HEENT: NC/AT; MMM. CV: RRR, no m/r/g. LUNGS: CTAB, no w/r/c. ABD: Soft, NT/ND, NBS, no masses or organomegaly. EXT: skin Warm, well perfused. no rashes. No clubbing, cyanosis, or edema. NEURO: Ambulating with no limitations. No focal deficits. Patient is deaf since childhood Medications Current Medications Medications Dose Ordered Sig/Jelly Route Start Time Stop Time Status Last Admin Dose Admin Sodium Chloride 10 ml Q8HR IV 10/24/24 06:00 10/30/24 11:55 10 ML Sodium Chloride 1,000 ml @ 60 mls/hr [id number] IV 10/23/24 22:45 10/29/24 10:03 60 MLS/HR Nitroglycerin 0.4 mg Q5MINP PRN SL 10/23/24 22:45 Morphine Sulfate 2 mg Q30M PRN IV 10/23/24 22:45 Ceftriaxone Sodium 50 ml @ 100 mls/hr DAILY@09 IV 10/26/24 11:30 10/30/24 08:32 100 MLS/HR Thiamine HCl 100 mg DAILY IV 10/26/24 11:30 10/31/24 11:29 10/30/24 08:33 100 MG Multivitamins 1 tab DAILY PO 10/26/24 11:30 10/30/24 08:33 1 TAB Ondansetron HCl 4 mg Q4HPRN PRN IV 10/27/24 11:45 10/28/24 11:17 4 MG Laboratory Results Laboratory Tests 10/26/24 12:15 Urinalysis Test 10/24/24 08:20 Urine Color Yellow (Yellow) Urine Clarity Clear (Clear) Urine pH 6.5 (5.0-9.0) Urine Specific [place] 1.004 (1.001-1.035) Urine Protein Negative (Negative) Urine Ketones Negative (Negative) Urine Blood Negative /uL (Negative) Urine Nitrite Negative (Negative) Urine Bilirubin Negative (Negative) Urine Urobilinogen Normal mg/dL (Negative) Urine Leukocyte Esterase Negative /uL (Negative) Urine RBC <1 /hpf (0 - 3) Urine Microscopic WBC < 1 /HPF (0-3) Urine Squamous Epithelial Cells None seen /hpf (<5) Urine Bacteria None seen /hpf (None Seen) Urine Glucose Normal mg/dL (Normal) Microbiology Microbiology Date/Time Source Procedure Growth Status 10/25/24 00:00 Nose MRSA Screen - Final Complete Labs and/or images reviewed: Labs reviewed by me, Image(s) reviewed by me Assessment/Plan Assessment/Plan 10/25: Alert and awake minimally verbal. Does not follow commands. Evaluated by Neurology. Social Service consultation is obtained to gather further information regarding his medical condition and medications and boarding care where he came from as well as next of kin. Meantime his workup in the hospital remains unremarkable. Continue current supportive care and treatment. Discussed with the nurse. 10/26: CT head had possible? Left mastoiditis. Concern for possible questionable heat stroke but no body temperature is > 104 F. labs are mostly unremarkable. UDS negative, UA negative. Most reversible medical causes are ruled out, there is still chance of alcohol withdrawal, undetectable abuse substance. We will start ceftriaxone for possible mastoiditis, continue IV fluids, start thiamine, folatex1, daily multivitamin, labs today.. Patient appears to be back at his baseline, following commands communicating through writing board which she brought from his home. This concerned that place of living boarding care had no temperature control, we will place home safety eval consult with social. We will continue IV antibiotics. Patient ambulating. 10/27: Patient doing well, back at his baseline confirmed with brother who lives in a different state. Patient's primary housing boarding care not safe environment we will likely need social workers to help place in new [facility] care which can provide adequate air conditioning safe [facility]. 10/28: Patient is stable for discharge, social work we will place in new boarding care. 10/29: Patient remains stable for discharge remains at baseline. 10/30: Patient remains stable for discharge. Remains at his baseline. Diagnosis: Confusion due to metabolic encephalopathy Questionable heat stroke Headache due to stroke/migraines/tension headaches Plan: Continue Home medications Social consulted for board care placement Prn pain control po hydration Med surge Full code Plan discussed with: Patient Date of Service: Oct 30, 2024 Billing Provider: GREGORY RAMOS MD Common Visit Codes: [id number] INP/OBS CARE(MOD) GREGORY RAMOS MD Oct 30, 2024 17:36
== END 2024-10-30 20:17 | disposition home or self-care (01) | DRG 54 ==
LOC: EDBD 13:28 → ER 13:28 → OVERFLOW 22:44 → UNDOADMIN 22:44 → OVERFLOW 10-24 00:02 → TELE-CENTR 10-25 13:09 → CENTRAL 10-26 19:47
PROVIDERS: ADMIT Student in an Organized Health Care Education/Training Program; ATTEND Student in an Organized Health Care Education/Training Program
DX: G44.209 Tension-type headache, unspecified, not intractable (principal); G92.8 Other toxic encephalopathy; T67.01XA Heatstroke and sunstroke, initial encounter; G43.909 Migraine, unspecified, not intractable, without status migrainosus; T67.5XXA Heat exhaustion, unspecified, initial encounter; H70.892 Other mastoiditis and related conditions, left ear; F84.0 Autistic disorder; R62.50 Unspecified lack of expected normal physiological development in childhood; X30.XXXA Exposure to excessive natural heat, initial encounter; Y93.89 Activity, other specified; Y92.89 Other specified places as the place of occurrence of the external cause; Y99.8 Other external cause status
CPT/HCPCS: 36415; 70450; 71046; 80053; 80307; 81001; 82140; 82550; 83605; 85025; 87081; 97110; 97116; 97163; G0378; J2405